=== PATIENT | female | born 1985 | race Caucasian/White ===

== ENCOUNTER 2017-01-26 10:38 | Emergency (ER) | payer SELFPAY ==
[~2017-01-26] VITALS: Ht 172.7 cm; Wt 68.0 kg
[2017-01-26 10:41] VITALS: BP 124/82; PULSE 86; RESP 16; TEMP 98.5; O2SAT 100
--- NOTE | 2017-01-26 11:25 | PD ---
HPI Chief Complaint: Back/ Neck Pain or Injury Time Seen by Provider: 11:24 Travel History International Travel<30 days: No Contact w/Intl Traveler<30days: No Traveled to known affect area: No History of Present Illness HPI 31-year-old female presents to the emergency department for evaluation of lower back pain. The patient states that today while at work lifting boxes she felt a pop in her lower back and has had left lower back pain since this occurred. Patient states that for the past 2 days she has been moving furniture moving apartments. States that she did not injure her back while moving but thinks that maybe her back was already a little strained. States that while at work this morning she was bending and picking up small boxes for a few hours and the injury occurred after she actually sat down a box and when she stood up with no weight in her hands she felt the pain in her lower back. She denies any fever, chills, nausea, vomiting, numbness or tingling, weakness, saddle anesthesia, bowel or bladder incontinence. Pain is moderate. Aggravated with movement. Deviated with rest. Denies , last menstrual period 2 weeks ago. No other complaints. PFSH Past Medical History Medical History: Denies Significant Hx Tetanus Vaccination: Unknown Influenza Vaccination: No ?: Not LMP: 3 weeks ago : 3 Para: 3 Past Surgical History Surgical History: No Previous Surgery Section: Yes Social History Alcohol Use: No Tobacco Use: No Substance Use: No Allergies-Medications (Allergen,Severity, Reaction): Coded Allergies: No Known Allergies (Unverified , 01/26/17) Reported Meds & Prescriptions Reported Meds & Active Scripts Active Naproxen 500 Mg Tab 500 Mg PO BID 7 Days Flexeril (Cyclobenzaprine HCl) 5 Mg Tab 5 Mg PO TID 5 Days Lortab (Hydrocodone-Acetaminophen) 5-325 Mg Tab 1 Tab PO Q6H PRN Review of Systems Except as stated in HPI: all other systems reviewed are Neg Physical Exam Narrative GENERAL: Well-nourished and well-developed pleasant patient in no acute distress who is nontoxic appearing. SKIN: Warm and dry. HEAD: Normocephalic and atraumatic. EYES: No injection, drainage, or hyphema noted. PERRLA. EOMI. ENT: No nasal drainage noted. Oropharynx is clear. NECK: Supple and the trachea is midline. CARDIOVASCULAR: Regular rate and rhythm. RESPIRATORY: Breath sounds are equal bilaterally with no accessory muscle use, wheezing, rhonchi, or crackles. MUSCULOSKELETAL: No obvious deformities, swelling, cyanosis, or ecchymosis is present throughout the upper and lower extremities. Patient has full range of motion without any signs of neurovascular compromise. Strength 5/5 upper and lower extremities and equal bilaterally. SLR positive. BACK: Left lumbar paraspinal muscle tenderness to palpation. No obvious deformities, midline bony point tenderness, or crepitus noted throughout the thoracic and lumbar vertebrae. NEUROLOGICAL: Awake, alert, and oriented. Normal speech and gait. Cranial nerves are grossly intact. Data Data Last Documented VS Vital Signs Date Time Temp Pulse Resp B/P Pulse Ox O2 Delivery O2 Flow Rate FiO2 01/26/17 10:41 98.5 86 16 124/82 100 Orders Ketorolac Inj (Toradol Inj) (01/26/17 11:30) Acetamin-Hydrocod 325-5 Mg ([place] 5-325 (01/26/17 11:30) MDM Medical Decision Making Medical Screen Exam Complete: Yes Emergency Medical Condition: Yes Differential Diagnosis Muscle strain versus muscle spasm versus discogenic pain Narrative Course 31-year-old female presents to the emergency department for evaluation of lower back strain. Patient is afebrile, vital signs are stable. No focal neurologic deficits. No traumatic injury. No midline bony point tenderness. Also there is any emergent imaging indicated at this time. The patient is given Toradol 60 mg IM and Lortab 5-325 mg orally. She'll be discharged with pain medication , NSAIDs and muscle relaxers. Discussed supportive care. Advised follow-up with her PCP. Patient verbalizes understanding and agreement with treatment plan. Diagnosis Primary Impression: Acute low back pain Qualified Code: M54.5 - Acute left-sided low back pain without sciatica Referrals: Primary Care Physician Patient Instructions: Acute Low Back Pain (ED), General Instructions Departure Forms: Tests/Procedures, Work Release Enter return to work date: Jan 28, 2017 Additional Instructions: Rest. Perform gentle stretches. Apply ice or heat to help alleviate symptoms. Take medications as prescribed with food and a full glass of water. Do not take Lortab with alcohol or while driving. Follow-up with your Primary Care Physician. Return to the ED for any acute worsening of symptoms. Med/Other Pt SpecificInfo: Prescription(s) given Scripts Naproxen 500 Mg [id number] Mg PO BID 7 Days Ref 0 Prov:Mraiely Pascual MD 01/26/17 Cyclobenzaprine (Flexeril)5 Mg Tab5 Mg PO TID 5 Days Ref 0 Prov:Mariely Pascual MD 01/26/17 Hydrocodone-Acetaminophen (Lortab)5-325 Mg Tab1 Tab PO Q6H PRN (PAIN GREATER THAN 6) #10 TAB Ref 0 Prov:Mariely Pascual MD 01/26/17 Disposition: 01 DISCHARGE HOME Condition: Stable Louann Lea Jan 26, 2017 11:25
[2017-01-26] MEDS ORDERED: HYDR-3533 PO (11:27)
[2017-01-26] MEDS ORDERED: CYCL5TAB PO (11:27)
[2017-01-26] MEDS ORDERED: NAPR500T PO (11:27)
[2017-01-26] MEDS ORDERED: KETOROLAC TROMETHAMINE 60 MG/2 ML (IM) VIAL IM ONE (11:30)
[2017-01-26] MEDS ORDERED: ACETAMINOPHEN/HYDROcodone 325 MG/5 MG TAB PO ONE (11:30)
== END 2017-01-26 12:57 | disposition home or self-care (01) ==
LOC: NEPD 10:38
DX: M54.5 Low back pain (principal); X50.3XXA Overexertion from repetitive movements, initial encounter; Y99.0 Civilian activity done for income or pay
CPT/HCPCS: 96372; 99283; J1885

== ENCOUNTER 2017-08-03 20:24 | Emergency (ER) | payer SELFPAY ==
[~2017-08-03] VITALS: Ht 165.1 cm; Wt 56.0 kg
[~2017-08-03 20:24] MED LIST: CYCL5TAB PO; HYDR-3533 PO; NAPR500T PO
[2017-08-03 20:35] VITALS: BP 136/91; PULSE 92; RESP 16; TEMP 98.7; O2SAT 98
[2017-08-03] MEDS ORDERED: SODIUM CHLORIDE 0.9% FLUSH 10 ML FLUSH IVF PRN (20:45)
[2017-08-03] MEDS ORDERED: SODIUM CHLOR 0.9% 1000 ML INJ 1,000 ML IV SCH (20:49)
--- NOTE | 2017-08-03 20:49 | PD ---
HPI Chief Complaint: OD/ Ingestion Time Seen by Provider: 20:30 Travel History International Travel<30 days: No Contact w/Intl Traveler<30days: No Traveled to known affect area: No History of Present Illness HPI This is a 32-year-old female who presents via EMS for evaluation. The patient reports that today she injected some heroin in her left hand. Prior to this she snorted some Xanax. She was found unconscious in an apartment. By the time EMS was on the scene the patient was awake, GCS 15, alert and oriented 3, but lethargic. She is currently awake and lethargic and is able to provide history. She reports that she uses heroin and a fairly regular basis, typically in the hands. She is complaining of some lateral left foot pain presumably from falling today. Pain is mild, aching, worse with palpation. Denies headache, blurred vision, neck pain or back pain, chest pain or shortness of breath, abdominal pain. She denies any other drug use. She denies any suicidal ideation. No other complaints. PFSH Past Medical History Medical other: Yes (IV DRUG USE) ?: Not : 3 Para: 3 Past Surgical History Surgical History: No Previous Surgery Section: Yes Social History Alcohol Use: No Tobacco Use: No Substance Use: No Allergies-Medications (Allergen,Severity, Reaction): Coded Allergies: No Known Allergies (Unverified , 08/03/17) Reported Meds & Prescriptions Reported Meds & Active Scripts Active Naproxen 500 Mg Tab 500 Mg PO BID 7 Days Flexeril (Cyclobenzaprine HCl) 5 Mg Tab 5 Mg PO TID 5 Days Lortab (Hydrocodone-Acetaminophen) 5-325 Mg Tab 1 Tab PO Q6H PRN Review of Systems Except as stated in HPI: all other systems reviewed are Neg Physical Exam Narrative GENERAL: Well-developed well-nourished female who is drowsy but responds to verbal stimuli. SKIN: Warm and dry. Tract ferrell noted on the dorsum of both hands. HEAD: Atraumatic. Normocephalic. EYES: Pupils equal, 3 mm, round, reactive to light bilaterally. Extraocular muscles are intact. No scleral icterus. No injection or drainage. ENT: No nasal bleeding or discharge. Mucous membranes pink and moist. NECK: Trachea midline. No JVD. CARDIOVASCULAR: Regular rate and rhythm. No murmur appreciated. RESPIRATORY: No accessory muscle use. Clear to auscultation. Breath sounds equal bilaterally. GASTROINTESTINAL: Abdomen soft, non-tender, nondistended. Hepatic and splenic margins not palpable. MUSCULOSKELETAL: There is some ecchymosis to the lateral left foot with associated tenderness to palpation. NEUROLOGICAL: Awake and alert. No obvious cranial nerve deficits. Motor grossly within normal limits. Normal speech. PSYCHIATRIC: Insight and judgment appear reasonable. Data Data Last Documented VS Vital Signs Date Time Temp Pulse Resp B/P (MAP) Pulse Ox O2 Delivery O2 Flow Rate FiO2 08/03/17 22:09 15 99 Room Air 08/03/17 22:07 83 08/03/17 20:35 98.7 Orders Orders Electrocardiogram (08/03/17 20:42) Complete Blood Count With Diff (08/03/17 20:42) Comprehensive Metabolic Panel (08/03/17 20:42) Blood Glucose (08/03/17 20:42) Iv Access Insert/Monitor (08/03/17 20:42) Ecg Monitoring (08/03/17 20:42) Oximetry (08/03/17 20:42) Sodium Chloride 0.9% Flush (Ns Flush) (08/03/17 20:45) Drug Screen, Random Urine (08/03/17 20:42) Alcohol (Ethanol) (08/03/17 20:42) Salicylates (Aspirin) (08/03/17 20:42) Tylenol (Acetaminophen) (08/03/17 20:42) Ed Urine Pregnancytest Poc (08/03/17 20:42) Foot, Complete ([id number]) (08/03/17 ) Sodium Chlor 0.9% 1000 Ml Inj (Ns 1000 M (08/03/17 20:49) Potassium Chloride (Kcl) (08/03/17 22:15) Labs Laboratory Tests Test 08/03/17 20:55 08/03/17 21:25 White Blood Count 7.8 TH/MM3 Red Blood Count 4.02 MIL/MM3 Hemoglobin 11.3 GM/DL Hematocrit 33.8 % Mean Corpuscular Volume 84.0 FL Mean Corpuscular Hemoglobin 28.0 PG Mean Corpuscular Hemoglobin Concent 33.4 % Red Cell Distribution Width 14.3 % Platelet Count 225 TH/MM3 Mean Platelet Volume 7.8 FL Neutrophils (%) (Auto) 74.7 % Lymphocytes (%) (Auto) 17.0 % Monocytes (%) (Auto) 5.5 % Eosinophils (%) (Auto) 2.4 % Basophils (%) (Auto) 0.4 % Neutrophils # (Auto) 5.8 TH/MM3 Lymphocytes # (Auto) 1.3 TH/MM3 Monocytes # (Auto) 0.4 TH/MM3 Eosinophils # (Auto) 0.2 TH/MM3 Basophils # (Auto) 0.0 TH/MM3 CBC Comment DIFF FINAL Differential Comment Blood Urea Nitrogen 17 MG/DL Creatinine 0.72 MG/DL Random Glucose 123 MG/DL Total Protein 8.0 GM/DL Albumin 3.7 GM/DL Calcium Level 8.5 MG/DL Alkaline Phosphatase 62 U/L Aspartate Amino Transf (AST/SGOT) 34 U/L Alanine Aminotransferase (ALT/SGPT) 44 U/L Total Bilirubin 0.2 MG/DL Sodium Level 140 MEQ/L Potassium Level 3.4 MEQ/L Chloride Level 106 MEQ/L Carbon Dioxide Level 27.3 MEQ/L Anion Gap 7 MEQ/L Estimat Glomerular Filtration Rate 95 ML/MIN Acetaminophen Level LESS THAN 2.0 MCG/ML Ethyl Alcohol Level LESS THAN 3 MG/DL Urine Opiates Screen POS Urine Barbiturates Screen NEG Urine Amphetamines Screen NEG Urine Benzodiazepines Screen POS Urine Cocaine Screen POS Urine Cannabinoids Screen NEG MDM Medical Decision Making Medical Screen Exam Complete: Yes Emergency Medical Condition: Yes Medical Record Reviewed: Yes Differential Diagnosis Polysubstance abuse, respiratory depression, intentional overdose, unintentional overdose Narrative Course The patient was placed on ECG monitor and pulse oximetry. A 12-lead EKG was obtained. Plan is for basic lab work, left foot x-ray. The patient will be monitored closely. The patient's labwork is been reviewed, notable for potassium of 3.4, she'll be given oral potassium chloride. The patient's drug screen is positive for benzodiazepines, opiates, cocaine. The patient will remain here for a period of observation prior to discharge. Diagnosis Primary Impression: Polysubstance abuse Referrals: [facility] Additional Instructions: Consider attending a detoxification program such as that found at [facility]. Return for any emergent medical conditions. Med/Other Pt SpecificInfo: No Change to Meds Disposition: 01 DISCHARGE HOME Condition: Stable Shantanu Rodrigues. PA Aug 03, 2017 20:49
[2017-08-03 21:19] LABS: AUTOMATED NEUTROPHIL # 5.8 TH/MM3 (1.8-7.7); BASOPHIL % 0.4 % (0.0-2.0); EOSINOPHIL # 0.2 TH/MM3 (0-0.4); EOSINOPHIL % 2.4 % (0.0-4.0); HEMATOCRIT 33.8 % (35.0-46.0); HEMO FLAGS DIFF FINAL; LYMPHOCYTE # 1.3 TH/MM3 (1.0-4.8); MEAN CORPUSCULAR HGB CONC 33.4 % (32.0-36.0); MONO % 5.5 % (0.0-8.0); NEUT % 74.7 % (16.0-70.0); PLATELET COUNT 225 TH/MM3 (150-450); RED BLOOD COUNT 4.02 MIL/MM3 (4.00-5.30); RED CELL DISTRIBUTION WIDTH 14.3 % (11.6-17.2); WHITE BLOOD COUNT 7.8 TH/MM3 (4.0-11.0)
--- NOTE | 2017-08-03 21:31 | RADRPT ---
EXAM DATE/TIME: 08/03/2017 20:47 [facility] COMPARISON: No previous studies available for comparison. INDICATIONS : Left foot pain. MEDICAL HISTORY : None. SURGICAL HISTORY : None. ENCOUNTER: Initial ACUITY: 1 day PAIN SCORE: Non-responsive. LOCATION: Left foot FINDINGS: No definite fractures, or dislocations are identified. No definite lytic or sclerotic lesion is seen . The joint spaces are well maintained. CONCLUSION: Unremarkable study. Filipe Barnard MD on August 03, 2017 at 21:29 Board Certified Radiologist. This report was verified electronically.
[2017-08-03 21:34] LABS: ANION GAP 7 MEQ/L (5-15); BICARBONATE 27.3 MEQ/L (21.0-32.0); BLOOD UREA NITROGEN 17 MG/DL (7-18); CHLORIDE 106 MEQ/L (98-107); GLOMERULAR FILTRATION RATE 95 ML/MIN (>89); POTASSIUM 3.4 MEQ/L (3.5-5.1); SODIUM (NA) 140 MEQ/L (136-145)
[2017-08-03 21:35] LABS: AST (GOT) 34 U/L (15-37)
[2017-08-03 21:36] LABS: ALCOHOL LESS THAN 3 MG/DL (0-5)
[2017-08-03 21:38] LABS: ALKALINE PHOSPHATASE 62 U/L (45-117); ALT (GPT) 44 U/L (10-53); TOTAL BILIRUBIN ADULT 0.2 MG/DL (0.2-1.0)
[2017-08-03 21:39] LABS: ACETAMINOPHEN LESS THAN 2.0 MCG/ML (10.0-30.0)
[2017-08-03 22:07] VITALS: BP 125/88; PULSE 83; RESP 15; O2SAT 99
[2017-08-03 22:09] VITALS: RESP 15; O2SAT 99
[2017-08-03] MEDS ORDERED: POTASSIUM CHLORIDE 20 MEQ CONTROLLED RELEASE TAB PO ONE (22:15)
--- NOTE | 2017-08-04 21:28 | EKG ---
Date Performed: 08/03/2017 Time Performed: 20:36:32 PTAGE: 32 years EKG: Sinus rhythm WITH SINUS ARRHYTHMIA INCOMPLETE RIGHT BUNDLE BRANCH BLOCK BORDERLINE ECG NO PREVIOUS TRACING DOCTOR: Jonn Dickens Interpretating Date/Time 08/04/2017 21:26:20
== END 2017-08-04 06:45 | disposition home or self-care (01) ==
LOC: NEPC 20:24 → NEPD 08-04 06:45
DX: T40.1X1A Poisoning by heroin, accidental (unintentional), initial encounter (principal); S90.32XA Contusion of left foot, initial encounter; R53.83 Other fatigue; I49.8 Other specified cardiac arrhythmias; I45.10 Unspecified right bundle-branch block; Z79.899 Other long term (current) drug therapy; X58.XXXA Exposure to other specified factors, initial encounter
CPT/HCPCS: 73630; 80053; 80307; 84703; 85025; 93005; 96360; 99285; J7030